=== PATIENT | male | born 1955 | race Caucasian/White ===

== ENCOUNTER 2018-11-07 12:49 | Inpatient (IN) | payer MEDICAID ==
[~2018-11-07] VITALS: Ht 180.3 cm; Wt 73.9 kg
[~2018-11-07 12:49] MED LIST: BENZ2TAB10 PO; HALO10 PO
[2018-11-07] MEDS ORDERED: HALOPERIDOL 5 MG TABLET PO PRN (16:45)
[2018-11-07] MEDS ORDERED: LORazepam 2 MG TABLET PO PRN (16:45)
[2018-11-07] MEDS ORDERED: ZOLPIDEM TARTRATE 10 MG TABLET PO PRN (16:45)
[2018-11-07] MEDS ORDERED: PNEUMOCOCCAL VACCINE POLYVALENT 0.5 ML VIAL [PPSV23] IM ONE (17:15)
[2018-11-07 17:20] VITALS: BP 130/81
[2018-11-07] MEDS ORDERED: MAG HYDROX/AL HYDROX/SIMETH ES 30 ML SUSPENSION UDCUP PO PRN (17:45)
[2018-11-07] MEDS ORDERED: ACETAMINOPHEN 325 MG TABLET PO PRN (17:45)
[2018-11-07] MEDS ORDERED: GuaiFENesin/D-METHORPHAN [SUGAR-FREE] 200-20MG/10 ML SYRUP UDCUP PO PRN (17:45)
[2018-11-07] MEDS ORDERED: PETROLATUM,WHITE 71 GM JELLY TP PRN (17:45)
[2018-11-07] MEDS ORDERED: ALBUTEROL SULFATE HFA 90 MCG/PUFF 8 GM INHALER IH PRN (17:45)
[2018-11-07] MEDS ORDERED: ONDANSETRON HCL 4 MG TABLET PO PRN (17:45)
[2018-11-07] MEDS ORDERED: CloNIDine HCL 0.1 MG TABLET PO PRN (17:45)
[2018-11-07] MEDS ORDERED: LOPERAMIDE HCL 2 MG CAPSULE PO PRN (17:45)
[2018-11-07] MEDS ORDERED: MAGNESIUM HYDROXIDE SUSPENSION 30 ML UDCUP PO PRN (17:45)
[2018-11-07] MEDS ORDERED: DOCUSATE SODIUM 100 MG CAPSULE PO PRN (17:45)
[2018-11-08 08:28] LABS: BASOPHILS % (AUTO) 0.5 % (0.0-2.0); EOSINOPHILS % (AUTO) 1.4 % (1.0-6.0); HEMATOCRIT 42.4 % (41-53); HEMOGLOBIN 14.6 g/dL (13.5-17.5); LYMPHOCYTES % (AUTO) 22.6 % (22.0-44.0); MEAN CORPUSCULAR HEMOGLOBIN 34.1 pg (26.0-34.0); MEAN CORPUSCULAR HGB CONC 34.4 G/dL (31.0-37.0); MEAN CORPUSCULAR VOLUME 99 fL (80-100); MONOCYTES # (AUTO) 0.6 K/uL (0.1-1.0); MONOCYTES % (AUTO) 6.5 % (2.0-9.0); PLATELET COUNT (AUTO) 516 K/uL (150-450); RED BLOOD CELL COUNT(AUTO) 4.28 MIL/uL (4.50-5.90); RED CELL DISTRIBUTION WIDTH 13.2 % (11.5-14.5)
[2018-11-08 08:41] LABS: HEMOGLOBIN A1C 5.9 % (4.5-6.2)
[2018-11-08 08:51] VITALS: BP 119/84
[2018-11-08 09:26] LABS: ALANINE AMINOTRANSFERASE 11 U/L (12-78); ALBUMIN 2.4 g/dL (3.4-5.0); ALKALINE PHOSPHATASE 106 U/L (46-116); ANION GAP 11 mmol/L (8-16); ASPARTATE AMINOTRANSFERASE 12 U/L (15-37); BILIRUBIN,TOTAL 0.4 mg/dL (0.1-1.0); CALCIUM, TOTAL 8.4 mg/dL (8.8-10.5); CARBON DIOXIDE 25 mmol/L (22-29); CHLORIDE 101 mmol/L (98-107); CHOL/HDL RATIO 2.9 (4.2-7.3); CHOLESTEROL 115 mg/dL (131-200); CREATININE 0.68 mg/dL (0.60-1.30); FREE T4 (FREE THYROXINE) 1.15 ng/dL (0.76-1.46); GLOMERULAR FILTR. RATE CALC > 60 mL/min (>60); GLUCOSE,RANDOM 91 mg/dL (70-110); HDL CHOLESTEROL 39 mg/dL (40-60); LDL CHOL (CALC.) 58 mg/dL (0-130); POTASSIUM 4.6 mmol/L (3.5-5.1); SODIUM SERUM 137 mmol/L (136-145); THYROID STIMULATING HORMONE 1.48 uIU/mL (0.36-3.74); TOTAL PROTEIN, SERUM 6.7 g/dL (6.4-8.2); TRIGLYCERIDES 90 mg/dL (15-150); UREA NITROGEN, BLOOD 10 mg/dL (7-18)
[2018-11-08 16:00] VITALS: BP 111/67
[2018-11-08] MEDS: BENZTROPINE MESYLATE 2 MG TABLET PO SCH (21:01)
[2018-11-08] MEDS: HALOPERIDOL 10 MG TABLET PO SCH (21:01)
[2018-11-09 06:43] VITALS: BP 116/71
[2018-11-09 08:19] VITALS: BP 136/88
[2018-11-09 16:29] VITALS: BP 109/77
[2018-11-09] MEDS: HALOPERIDOL 10 MG TABLET PO SCH (21:13)
[2018-11-09] MEDS: BENZTROPINE MESYLATE 2 MG TABLET PO SCH (21:13)
[2018-11-10 06:42] VITALS: BP 117/80
[2018-11-10 08:38] VITALS: BP 100/64
[2018-11-10] MEDS: NICOTINE 14 MG/24 HOUR PATCH TD PRN (14:12)
[2018-11-10 16:06] VITALS: BP 141/76
[2018-11-10] MEDS: BENZTROPINE MESYLATE 2 MG TABLET PO SCH (20:58)
[2018-11-10] MEDS: HALOPERIDOL 10 MG TABLET PO SCH (20:58)
[2018-11-11 06:17] VITALS: BP 135/70
[2018-11-11 08:13] VITALS: BP 110/61
[2018-11-11] MEDS: NICOTINE 14 MG/24 HOUR PATCH TD PRN (13:06)
[2018-11-11 16:14] VITALS: BP 132/82
[2018-11-11] MEDS: HALOPERIDOL 10 MG TABLET PO SCH (20:18)
[2018-11-11] MEDS: BENZTROPINE MESYLATE 2 MG TABLET PO SCH (20:18)
[2018-11-12 05:56] VITALS: BP 118/74
[2018-11-12 08:10] VITALS: BP 112/73
[2018-11-12] MEDS: IBUPROFEN 400 MG TABLET PO PRN ×2 (10:42→18:46)
[2018-11-12 10:45] VITALS: BP 114/73
[2018-11-12 11:42] VITALS: BP 113/74
[2018-11-12] MEDS: NICOTINE 14 MG/24 HOUR PATCH TD PRN (12:55)
[2018-11-12 16:09] VITALS: BP 109/67
[2018-11-12] MEDS: HALOPERIDOL 10 MG TABLET PO SCH (20:15)
[2018-11-12] MEDS: BENZTROPINE MESYLATE 2 MG TABLET PO SCH (20:16)
[2018-11-13 07:03] VITALS: BP 117/78
[2018-11-13 08:57] VITALS: BP 109/74
[2018-11-13] MEDS: IBUPROFEN 400 MG TABLET PO PRN (09:21)
[2018-11-13 09:25] VITALS: BP 114/77
[2018-11-13] MEDS ORDERED: BENZ2TAB10 PO (10:09)
[2018-11-13] MEDS ORDERED: HALO10 PO (10:09)
== END 2018-11-13 13:30 | disposition home or self-care (01) | DRG 750 ==
LOC: B3A 16:40
DX: F20.0 Paranoid schizophrenia (principal); E44.0 Moderate protein-calorie malnutrition; F10.10 Alcohol abuse, uncomplicated; J44.9 Chronic obstructive pulmonary disease, unspecified; I10 Essential (primary) hypertension; E83.51 Hypocalcemia; F12.10 Cannabis abuse, uncomplicated; Z79.899 Other long term (current) drug therapy; Z68.22 Body mass index [BMI] 22.0-22.9, adult
CPT/HCPCS: 83036; 84439; 84443

== ENCOUNTER 2019-11-07 16:50 | Inpatient (IN) | payer MEDICAID ==
[~2019-11-07] VITALS: Ht 172.7 cm; Wt 74.6 kg
[2019-11-07] MEDS ORDERED: BENZ2TAB10 PO (17:12)
[2019-11-07] MEDS ORDERED: HALO10 PO (17:12)
[2019-11-07] MEDS ORDERED: HALOPERIDOL 5 MG TABLET PO PRN (20:30)
[2019-11-07] MEDS ORDERED: INFLUENZA VIRUS VACCINE QVS 2019-20 (3YR+)/PF 60 MCG/0.5 ML SYRINGE IM ONE (20:30)
[2019-11-07 22:23] VITALS: BP 121/83
[2019-11-08 01:02] VITALS: BP 111/64
[2019-11-08 08:25] LABS: BASOPHILS % (AUTO) 0.4 % (0.0-2.0); EOSINOPHILS % (AUTO) 1.3 % (1.0-6.0); HEMATOCRIT 41.9 % (41-53); HEMOGLOBIN 14.1 g/dL (13.5-17.5); LYMPHOCYTES # (AUTO) 1.6 K/uL (1.0-4.8); LYMPHOCYTES % (AUTO) 21.8 % (22.0-44.0); MEAN CORPUSCULAR HEMOGLOBIN 33.6 pg (26.0-34.0); MEAN CORPUSCULAR HGB CONC 33.7 G/dL (31.0-37.0); MEAN CORPUSCULAR VOLUME 100 fL (80-100); MONOCYTES # (AUTO) 0.7 K/uL (0.1-1.0); MONOCYTES % (AUTO) 9.2 % (2.0-9.0); NEUTROPHILS % (AUTO) 67.3 % (40.0-70.0); PLATELET COUNT (AUTO) 320 K/uL (150-450); RED BLOOD CELL COUNT(AUTO) 4.21 MIL/uL (4.50-5.90); RED CELL DISTRIBUTION WIDTH 12.7 % (11.5-14.5)
[2019-11-08 08:57] VITALS: BP 115/78
[2019-11-08 09:05] LABS: HEMOGLOBIN A1C 5.6 % (3.8-5.6)
[2019-11-08 09:53] LABS: ALANINE AMINOTRANSFERASE 19 U/L (12-78); ALBUMIN 2.9 g/dL (3.4-5.0); ALKALINE PHOSPHATASE 107 U/L (46-116); ANION GAP 8 mmol/L (8-16); ASPARTATE AMINOTRANSFERASE 19 U/L (15-37); BILIRUBIN,TOTAL 0.5 mg/dL (0.1-1.0); CALCIUM, TOTAL 8.3 mg/dL (8.8-10.5); CARBON DIOXIDE 27 mmol/L (22-29); CHLORIDE 102 mmol/L (98-107); CHOL/HDL RATIO 2.4 (4.2-7.3); CHOLESTEROL 119 mg/dL (131-200); CREATININE 0.67 mg/dL (0.60-1.30); FREE T4 (FREE THYROXINE) 1.34 ng/dL (0.76-1.46); GLOMERULAR FILTR. RATE CALC > 60 mL/min (>60); GLUCOSE,RANDOM 94 mg/dL (70-110); HDL CHOLESTEROL 49 mg/dL (40-60); LDL CHOL (CALC.) 56 mg/dL (0-130); POTASSIUM 3.9 mmol/L (3.5-5.1); SODIUM SERUM 137 mmol/L (136-145); THYROID STIMULATING HORMONE 0.68 uIU/mL (0.36-3.74); TOTAL PROTEIN, SERUM 6.1 g/dL (6.4-8.2); TRIGLYCERIDES 71 mg/dL (15-150); UREA NITROGEN, BLOOD 8 mg/dL (7-18)
[2019-11-08] MEDS: LORazepam 2 MG TABLET PO PRN ×2 (10:32→17:39)
[2019-11-08 16:41] VITALS: BP 115/70
[2019-11-08] MEDS: HALOPERIDOL 10 MG TABLET PO SCH (20:54)
[2019-11-08] MEDS: BENZTROPINE MESYLATE 2 MG TABLET PO SCH (20:55)
[2019-11-09 06:35] VITALS: BP 111/79
[2019-11-09 08:39] VITALS: BP 124/89
[2019-11-09] MEDS: LORazepam 2 MG TABLET PO PRN ×3 (08:45→22:45)
[2019-11-09 16:14] VITALS: BP 116/82
[2019-11-09] MEDS ORDERED: PETROLATUM,WHITE 28 GM JELLY TP PRN (19:00)
[2019-11-09] MEDS ORDERED: BENZOCAINE/MENTHOL LOZENGE MM PRN (19:00)
[2019-11-09] MEDS ORDERED: CloNIDine HCL 0.1 MG TABLET PO PRN (19:00)
[2019-11-09] MEDS ORDERED: ONDANSETRON HCL 4 MG TABLET PO PRN (19:00)
[2019-11-09] MEDS ORDERED: ACETAMINOPHEN 325 MG TABLET PO PRN (19:00)
[2019-11-09] MEDS ORDERED: MAG HYDROX/AL HYDROX/SIMETH ES 30 ML SUSPENSION UDCUP PO PRN (19:00)
[2019-11-09] MEDS ORDERED: IBUPROFEN 600 MG TABLET PO PRN (19:00)
[2019-11-09] MEDS ORDERED: LOPERAMIDE HCL 2 MG CAPSULE PO PRN (19:00)
[2019-11-09] MEDS ORDERED: BACITRACIN 28.4 GM OINTMENT TP PRN (19:00)
[2019-11-09] MEDS ORDERED: MAGNESIUM HYDROXIDE SUSPENSION 30 ML UDCUP PO PRN (19:00)
[2019-11-09] MEDS ORDERED: ALBUTEROL SULFATE HFA 90 MCG/PUFF 8 GM INHALER IH PRN (19:00)
[2019-11-09] MEDS: BENZTROPINE MESYLATE 2 MG TABLET PO SCH (20:30)
[2019-11-09] MEDS: HALOPERIDOL 10 MG TABLET PO SCH (20:30)
[2019-11-09] MEDS: ZOLPIDEM TARTRATE 10 MG TABLET PO PRN (20:31)
[2019-11-10 06:53] VITALS: BP 135/93
[2019-11-10] MEDS: DOCUSATE SODIUM 100 MG CAPSULE PO SCH (08:41)
[2019-11-10] MEDS: OMEPRAZOLE 20 MG CAPSULE PO SCH (08:41)
[2019-11-10 09:00] VITALS: BP 105/68
[2019-11-10] MEDS: LORazepam 2 MG TABLET PO PRN ×3 (12:17→20:45)
[2019-11-10] MEDS: NICOTINE 14 MG/24 HOUR PATCH TD SCH (13:02)
[2019-11-10 16:12] VITALS: BP 138/99
[2019-11-10] MEDS ORDERED: OMEP20 PO (19:37)
[2019-11-10] MEDS: HALOPERIDOL 10 MG TABLET PO SCH (20:45)
[2019-11-10] MEDS: ZOLPIDEM TARTRATE 10 MG TABLET PO PRN (20:45)
[2019-11-10] MEDS: BENZTROPINE MESYLATE 2 MG TABLET PO SCH (20:45)
[2019-11-11 07:15] VITALS: BP 109/77
[2019-11-11] MEDS: DOCUSATE SODIUM 100 MG CAPSULE PO SCH (08:46)
[2019-11-11] MEDS: NICOTINE 14 MG/24 HOUR PATCH TD SCH (08:46)
[2019-11-11] MEDS: OMEPRAZOLE 20 MG CAPSULE PO SCH (08:46)
[2019-11-11 08:51] VITALS: BP 113/81
[2019-11-11] MEDS: LORazepam 2 MG TABLET PO PRN ×2 (09:08→18:48)
[2019-11-11 16:08] VITALS: BP 116/87
[2019-11-11] MEDS: HALOPERIDOL 10 MG TABLET PO SCH (21:00)
[2019-11-11] MEDS: BENZTROPINE MESYLATE 2 MG TABLET PO SCH (21:09)
[2019-11-12 01:43] VITALS: BP 142/86
[2019-11-12 08:27] VITALS: BP 137/82
[2019-11-12] MEDS: DOCUSATE SODIUM 100 MG CAPSULE PO SCH (09:48)
[2019-11-12] MEDS: OMEPRAZOLE 20 MG CAPSULE PO SCH (09:48)
[2019-11-12] MEDS: NICOTINE 14 MG/24 HOUR PATCH TD SCH (09:54)
[2019-11-12] MEDS: LORazepam 2 MG TABLET PO PRN ×3 (10:58→20:50)
[2019-11-12 16:15] VITALS: BP 134/74
[2019-11-12] MEDS: BENZTROPINE MESYLATE 2 MG TABLET PO SCH (20:23)
[2019-11-12] MEDS: HALOPERIDOL 10 MG TABLET PO SCH (20:23)
[2019-11-12] MEDS: ZOLPIDEM TARTRATE 10 MG TABLET PO PRN (20:50)
[2019-11-13 01:56] VITALS: BP 131/78
[2019-11-13] MEDS ORDERED: MULTIVITAMINS WITH IRON TABLET PO SCH (07:30)
[2019-11-13 08:57] VITALS: BP 145/84
[2019-11-13] MEDS: NICOTINE 14 MG/24 HOUR PATCH TD SCH (09:00)
[2019-11-13] MEDS: OMEPRAZOLE 20 MG CAPSULE PO SCH (09:02)
[2019-11-13] MEDS: DOCUSATE SODIUM 100 MG CAPSULE PO SCH (09:02)
[2019-11-13 16:05] VITALS: BP 140/97
[2019-11-13] MEDS ORDERED: OMEP20 PO (18:57)
[2019-11-14] MEDS ORDERED: OMEPRAZOLE 20 MG CAPSULE PO SCH (09:00)
== END 2019-11-13 16:05 | disposition home or self-care (01) | DRG 750 ==
LOC: B3A 20:36
PROVIDERS: ADMIT Psychiatry & Neurology Psychiatry; ATTEND Psychiatry & Neurology Psychiatry
DX: F25.9 Schizoaffective disorder, unspecified (principal); F10.10 Alcohol abuse, uncomplicated; F41.9 Anxiety disorder, unspecified; F19.10 Other psychoactive substance abuse, uncomplicated; G47.00 Insomnia, unspecified; I10 Essential (primary) hypertension; K59.00 Constipation, unspecified; Z28.21 Immunization not carried out because of patient refusal; Z79.899 Other long term (current) drug therapy; Z71.41 Alcohol abuse counseling and surveillance of alcoholic; Z71.51 Drug abuse counseling and surveillance of drug abuser
CPT/HCPCS: 83036; 84439; 84443; 87081